=== PATIENT | male | born 1935 | race Caucasian/White ===

== ENCOUNTER → 2017-09-12 | Outpatient (CLI) | payer MEDICARE, OTHER ==
[~2017-09-12] MED LIST: APIX5TAB PO; DIGO125T76 PO; FOLI-17 PO; LISI-170 PO; METO25TA35 PO; POTA10TA5 PO; PRESERVISION PO; REGADENOSON 0.4 MG/5 ML SYRINGE ONE; SIMV80TA3 PO; TAMS0.4C2 PO
== END | disposition home or self-care (01) ==
LOC: CFH 12:07
PROVIDERS: ATTEND Internal Medicine Cardiovascular Disease
DX: I10 Essential (primary) hypertension (principal); I48.0 Paroxysmal atrial fibrillation
CPT/HCPCS: 78452; 93017; A9502; J2785

== ENCOUNTER 2019-10-26 14:14 | Outpatient (CLI) | payer MEDICARE, OTHER ==
[~2019-10-26 14:14] MED LIST changes: -REGADENOSON 0.4 MG/5 ML SYRINGE ONE; +SIMV80TA18 PO; -SIMV80TA3 PO
[2019-10-26] MEDS ORDERED: OMNIPAQUE 350 MG/ML, 100ML BOTTLE ONE (15:18)
== END 2019-10-26 23:59 | disposition home or self-care (01) ==
LOC: CFH 14:14
PROVIDERS: ATTEND Internal Medicine Cardiovascular Disease
DX: D30.01 Benign neoplasm of right kidney (principal)
CPT/HCPCS: 74170; 82565; Q9967